=== PATIENT | female | born 2000 | race Caucasian/White ===

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

== ENCOUNTER 2019-03-06 20:32 | Inpatient (IN) ==
[2019-03-06 21:35] LABS: AMPHETAMINE SCREEN NEGATIVE (NEG); CANNABINOID SCREEN,URINE NEGATIVE (NEG); COCAINE SCREEN NEGATIVE (NEG); METHADONE URINE SCREEN NEGATIVE (NEG); METHAMPHETAMINES SCREEN,URINE NEGATIVE (NEG); OPIATE SCREEN,URINE NEGATIVE (NEG); URINE SAMPLE TYPE VOIDED SPECIMEN; URINE SPECIFIC GRAVITY - MAN 1.005
[2019-03-06] MEDS ORDERED: Nalbuphine Inj 20 MG/ML Ampule IVP PRN (22:05)
[2019-03-06] MEDS ORDERED: Lidocaine 1% 10 MG/ML - 20 ML VIAL SUBCUT PRN (22:05)
[2019-03-06] MEDS ORDERED: TERBUTALINE SULFATE 1 MG/1 ML SDV SUBCUT PRN (22:05)
[2019-03-06] MEDS ORDERED: LIDOCAINE HCL 2 % 10 ML JELLY URO-JECT TOPICAL PRN (22:05)
[2019-03-06] MEDS ORDERED: Lactated Ringers-OB Dept 2,000 ML ONE (22:05)
[2019-03-06] MEDS ORDERED: Naloxone Inj 0.01 MG in Sodium Chloride 0.9% vial 1 ML IVP PRN (22:05)
[2019-03-06] MEDS ORDERED: NALOXONE 0.4 MG/1 ML VIAL IVP PRN (22:05)
[2019-03-06] MEDS ORDERED: Phenylephrine Inj 50 MCG in Sodium Chloride 0.9% vial 0.5 ML IVP PRN (22:05)
[2019-03-06] MEDS ORDERED: fentaNYL Inj 100 MCG/2 ML VIAL IV PRN (22:05)
[2019-03-06] MEDS ORDERED: FAMOTIDINE 20 MG/2 ML VIAL IVP PRN ×2 (22:05)
[2019-03-06] MEDS ORDERED: Metoclopramide Inj 10 MG/2 ML VIAL IV PRN (22:05)
[2019-03-06] MEDS ORDERED: CefOXitin Inj 2 GM in Sodium Chloride 0.9% 100 ML IV PRN (22:05)
[2019-03-06] MEDS ORDERED: MISOPROSTOL 200 MCG TABLET RECTAL PRN (22:05)
[2019-03-06] MEDS ORDERED: ePHEDrine Inj 50 MG/ML AMP IVP PRN (22:05)
[2019-03-06] MEDS ORDERED: METHYLERGONOVINE MALEATE 0.2 MG/1 ML VIAL IM PRN (22:05)
[2019-03-06] MEDS ORDERED: ONDANSETRON 4 MG/2 ML VIAL IVP PRN (22:05)
[2019-03-06] MEDS ORDERED: diphenhydrAMINE 50 MG/1 ML VIAL IVP PRN (22:05)
[2019-03-06] MEDS ORDERED: Carboprost Inj 250 MCG/ML AMP IM PRN (22:05)
[2019-03-06] MEDS ORDERED: CITRIC ACID/SODIUM CITRATE 30 ML CUP PO PRN (22:05)
[2019-03-06] MEDS ORDERED: OXYTOCIN 10 UNIT/1 ML IM PRN (22:05)
[2019-03-06] MEDS ORDERED: LIDOCAINE W/ SODIUM BICARB 0.5 ML SYR SUBD PRN (22:05)
[2019-03-06] MEDS ORDERED: Oxytocin 20 Units + LR 20 UNIT/1,000 ML BAG IV SCH (22:15)
[2019-03-06 22:34] LABS: Hematocrit [HCT] 37.6 % (37.0-47.0); Hemoglobin [HGB] 12.9 g/dL (12.0-16.0); MEAN CORPUSCULAR HGB CONC 34.3 g/dL (33-37); MEAN PLATELET VOLUME 11.1 FL (7.4-12.2)
[2019-03-06] MEDS: Lactated Ringers-OB Dept 1,000 ML PRIMARY IV SCH (22:37)
[2019-03-06] MEDS: CALCIUM CARBONATE 500 MG (TUMS) CHEWABLE TABLET PO PRN (22:43)
[2019-03-06] MEDS ORDERED: Sodium Chloride 0.9% 250 ML ONE (22:43)
[2019-03-06] MEDS ORDERED: Vancomycin Inj 1gm vial ONE (22:43)
[2019-03-06] MEDS: BUTORPHANOL TARTRATE 2 MG/1 ML VIAL IVP PRN ×2 (22:59→23:20)
[2019-03-06] MEDS ORDERED: Lidocaine/Epi Inj 1.5% 5 ML AMPUL EPIDURAL ONE (23:21)
[2019-03-06] MEDS ORDERED: Fent/Bupiv 2mcg/0.0625% Epid 250 ML ONE (23:43)
[2019-03-06] MEDS ORDERED: fentaNYL 2 MCG/BUPIVACAINE 0.0625%/NS 0.9% 250 ML BAG EPIDURAL SCH (23:45)
--- NOTE | 2019-03-06 23:53 | CRNA.PROCE ---
Central Neuraxis Block [facility] - - Safety Measures: Time Out Taken, Site Verified - - Type of Block: Epidural Reason for Block: Analgesia Moniters Used During Block: SPO2, NIBP Positioning: Sitting Skin Prep Used: Betadine Skin Infiltration - Enter Amount Used in Comment Field: 1% Xylocaine (mL): Yes (wheal) Introducer User: 18 Gauge Manny Local Anesthetic - Enter Amount Used in Comment Field: 1.5 % Xylocaine with Epinephrine 1:200,000 (mL): Yes (5ml) Number of Centimeters Catheter Threaded: 4 Bioclusive Dressing Applied: Yes Anesthesia Time - Other Weight: 65.487 kg Height: 4 ft 10.5 in Body Mass Index (BMI): 29.6
--- NOTE | 2019-03-06 23:54 | CRNA.PROGR ---
Anesthesia Time - Procedure/Recovery Time Start Date: 03/06/19 End Date: 03/06/19 Anesthesia : Time In: 23:20 Anesthesia : Time Out: 23:55 Anesthesia : Total Time: 35 - Total Anesthesia Time Total Anesthesia Time (minutes): 35 - Other Weight: 65.487 kg Height: 4 ft 10.5 in Body Mass Index (BMI): 29.6 Physical Status: P2 Obstetrics: Planned vaginal delivery w/ neuraxial labor anesthesia/analog
[2019-03-07] MEDS: CALCIUM CARBONATE 500 MG (TUMS) CHEWABLE TABLET PO PRN (00:53)
--- NOTE | 2019-03-07 07:14 | OB.PROGRES ---
Interval History: The patient is a 18-year-old at 37-6/7 weeks who presented last evening with contractions and pelvic pressure and feeling as though she had to push. Then spontaneous rupture of membranes with clear fluid and positive amnio sure. Positive movement. The patient was admitted and secondary to contraction pain, the patient requested an epidural. The patient's cervix changed from 3 cm to 4 cm to 5 cm. Epidural was placed and the patient had good pain relief with the epidural. This morning, the patient was examined by the nurse and membranes were palpated. Therefore, the rupture of membranes last evening was a forebag is likely. The patient's is complicated by positive group B strep. Patient is allergic to penicillins. The patient did receive vancomycin since the GBS was resistant to clindamycin per the nurse report last evening. The patient experienced flushing and some itching of her neck. Benadryl was given with excellent relief. Past medical history asthma. No hypertension or diabetes The patient has had surgery for a cyst on her back The patient is allergic to penicillin Positive tobacco. No alcohol in . History of drug use but none in according to the patient just now. Objective - Cervical Exam Cervical Exam: /-2 cephalic presentation. AROM with clear fluid. Copious amounts of clear fluid. [place]: Contractions every 2-3 minutes Heart Rate Interpretation Category: Category I - Labs CBC and BMP: 03/06/19 22:30 - Vital Signs Last Taken Vital Signs: Vital Signs - Last Taken Temperature 98.5 F 03/07/19 01:30 Pulse Rate 83 03/07/19 06:54 Respiratory Rate 18 03/07/19 06:34 Blood Pressure 121/80 03/07/19 06:34 Pulse Ox 97 03/07/19 06:36 Assessment and Plan - Assessment / Plan Additional Assessment/Plan Details: Assessment: IUP 37-6/7 weeks with presentation last evening with latent to active labor. Positive group B strep Mild gestational thrombocytopenia with platelets 137,000. H&H good. Patient did have 3 blood pressures in the mild range. Other blood pressures have been 120s over 70s are 120s over 80s. The patient denies headache. AROM with clear fluid Plan: Continue close observation I will check a CMP as well as a CBC again right now to look at the patient's liver function tests and renal function tests, H&H and platelets. I will continue to follow patient's blood pressures. The patient's blood pressures recently have been normal range. If the patient does have gestational hypertension, the patient's blood pressures for the most part are normal. Patient did have 1+ proteinuria on 02/26/2019. The patient does have preeclampsia it would be preeclampsia without signs or symptoms of severe preeclampsia. Expectant management. I did inform Dr. Ochoa that this patient is here after [address] Ochoa has followed this patient during her .
[2019-03-07 08:08] LABS: Hematocrit [HCT] 35.3 % (37.0-47.0); Hemoglobin [HGB] 11.9 g/dL (12.0-16.0); MEAN CORPUSCULAR HGB CONC 33.7 g/dL (33-37); MEAN CORPUSCULAR VOLUME 95.4 FL (81-99); MEAN PLATELET VOLUME 11.1 FL (7.4-12.2); RED BLOOD COUNT 3.7 10^6/uL (4.20-5.40)
[2019-03-07 08:23] LABS: BLOOD UREA NITROGEN 4 mg/dL (7-22); SERUM ALBUMIN 2.9 g/dL (3.5-4.8); Uric Acid 5.7 mg/dl (2.5-6.2)
--- NOTE | 2019-03-07 09:07 | OB.PROGRES ---
Date of Service: 03/07/19 Time of Service: 09:01 Interval History: Denies pain with her epidural, but is ready to be done so she can get up and walk. Boyfriend says that she wants a cigarette. Objective - Cervical Exam Cervical Exam: 6-7/100/-1 per RN at 0830 [place]: every 3-4 minutes, palpating moderate. Heart Rate: q5 minutes apart. Heart Rate Interpretation Category: Category I - Labs CBC and BMP: 03/07/19 07:50 03/07/19 07:50 - Vital Signs Last Taken Vital Signs: Vital Signs - Last Taken Temperature 98.4 F 03/07/19 08:15 Pulse Rate 88 03/07/19 08:15 Respiratory Rate 18 03/07/19 08:15 Blood Pressure 128/80 03/07/19 08:15 Pulse Ox 95 03/07/19 08:15 Assessment and Plan - Patient Problems (1) Active labor Current Visit: Yes Status: Acute - Assessment / Plan Additional Assessment/Plan Details: -GBS +: has received 1 dose of vancomycin at 2300 last night. -comfortable with her epidural. -will augment with pitocin if needed. -expectant management.
[2019-03-07] MEDS ORDERED: Oxytocin 20 Units + LR 20 UNIT/1,000 ML BAG IV SCH ×2 (09:30→13:32)
[2019-03-07] MEDS ORDERED: BUPivacaine Inj 0.25% PF - 10ml vial ONE (10:13)
[2019-03-07] MEDS ORDERED: LIDOCAINE MPF 2% - 5 ML (20 MG/1 ML) ONE (10:13)
[2019-03-07] MEDS: Lactated Ringers-OB Dept 1,000 ML PRIMARY IV SCH (10:18)
--- NOTE | 2019-03-07 10:18 | CRNA.PROGR ---
Anesthesia Note - Progress Notes Anesthesia Progress Note: Called to evaluate the epidural. Pt dilated to 8cm, bolused with 5cc of 2% [place] plain and 3cc of .25%bupivicaine plain, adjusted pump to a basal of 12 from 10cc. KADEN Maldonado
[2019-03-07] MEDS ORDERED: ACETAMINOPHEN 325 MG TABLET PO PRN (13:32)
[2019-03-07] MEDS ORDERED: ONDANSETRON 4 MG/2 ML VIAL IVP PRN (13:32)
[2019-03-07] MEDS ORDERED: Nalbuphine Inj 20 MG/ML Ampule IVP PRN (13:32)
[2019-03-07] MEDS ORDERED: DIPH,PERTUSS,TET(ADACEL) VAC/PF 0.5 ML (Tdap) IM ONE (13:32)
[2019-03-07] MEDS ORDERED: HYDROcodone-APAP 5 MG -325 MG TABLET PO PRN (13:32)
[2019-03-07] MEDS ORDERED: LIDOCAINE HCL 2 % 10 ML JELLY URO-JECT TOPICAL PRN (13:32)
[2019-03-07] MEDS ORDERED: GLYCERIN/WITCH HAZEL 1 BOX TOPICAL PRN (13:32)
[2019-03-07] MEDS ORDERED: CALCIUM CARBONATE 500 MG (TUMS) CHEWABLE TABLET PO PRN (13:32)
[2019-03-07] MEDS ORDERED: diphenhydrAMINE 25 MG CAPSULE PO PRN (13:32)
[2019-03-07] MEDS ORDERED: BENZOCAINE/MENTHOL SPRAY 56 GM BOTTLE TOPICAL PRN (13:32)
[2019-03-07] MEDS ORDERED: LANOLIN HPA 40 GM TUBE TOPICAL PRN (13:32)
[2019-03-07] MEDS ORDERED: Lidocaine 1% 10 MG/ML - 20 ML VIAL INTRADERM PRN (13:32)
[2019-03-07] MEDS ORDERED: diphenhydrAMINE 50 MG/1 ML VIAL IVP PRN (13:32)
[2019-03-07] MEDS ORDERED: Ondansetron ODT Tab 4 MG TAB PO PRN (13:32)
[2019-03-07] MEDS: IBUPROFEN 800 MG TABLET PO PRN ×2 (14:32→21:26)
--- NOTE | 2019-03-07 15:52 | OB.DEL.SUM ---
Delivery Note Delivery Summary: Pt is a 18 yo G3 now P2 at 37 6/7 weeks gestation by early u/s who presented last noc in labor. She had a positive amnisure as well shortly after she arrived on the L&D unit. Her GBS status is positive, needing vancomycin during labor because of PCN allergy and clindamycin resistance. She had an epidural placed for analgesia and was 5/70/-1 for most of the night. She had amniotomy this morning again for another bag of amniotic fluid, all of which was clear. She progressed somewhat slowly through active labor and was finally c/c/+2 at 1210. She began pushing a short time later and delivered a viable male over an intact perineum at 1219. No nuchal cords were noted. Baby's nose and mouth were suctioned with the bulb suction and then placed on mom's chest. Cord clamping was delayed 60 seconds. The cord was then doubly clamped by myself and cut by mom's significant other. Cord blood and cord gases were obtained and sent for analysis. The placenta delivered spontaneously and intact with a 3 vessel cord at 1230. The vagina and perineum were examined and no lacerations were noted. EBL 200 cc. Apgars were 9 at 1 minute and 10 at 5 minutes. Baby weighed 5#12.3 oz and was 17.75 inches long. Both mom and baby tolerated delivery well and are in stable condition at the current time. - Patient Problems (1) Active labor Current Visit: Yes Status: Acute
--- NOTE | 2019-03-07 17:48 | CRNA.PROGR ---
Anesthesia Note - Progress Notes Anesthesia Progress Note: catheter removed, tip intact, patient ambulating without difficulty. NAARC f/u at patient/surgeon request prn
[2019-03-07 21:40] VITALS: RESP 16
[2019-03-08] MEDS: IBUPROFEN 800 MG TABLET PO PRN ×2 (05:50→14:25)
[2019-03-08 07:39] LABS: Hematocrit [HCT] 31.7 % (37.0-47.0); Hemoglobin [HGB] 10.7 g/dL (12.0-16.0); MEAN CORPUSCULAR HGB CONC 33.8 g/dL (33-37); MEAN CORPUSCULAR VOLUME 95.2 FL (81-99); MEAN PLATELET VOLUME 10.9 FL (7.4-12.2); RED BLOOD COUNT 3.33 10^6/uL (4.20-5.40)
[2019-03-08] MEDS ORDERED: DOCUSATE 100 MG CAPSULE PO SCH (09:00)
[2019-03-08] MEDS ORDERED: Prenatal Multivitamin Tab 1 TAB TAB PO SCH (09:00)
[2019-03-08 10:37] VITALS: BP 133/94; O2SAT 98
[2019-03-08 14:26] VITALS: TEMP 98
--- NOTE | 2019-03-17 16:35 | OB.PROGRES ---
Subjective Post Day: 1 Pain Management: PO Yap Catheter: No Flatus: Yes Lochia Color: [place]/Red Small 10-25 ml Diet: Regular Feeding Method: Exculsively Ambulating: Yes Objective - General General Appearance: POSITIVE: No Acute Distress, Cooperative - Cardiovacular Cardiovascular Exam: POSITIVE: RRR, No Murmur Edema: +1 Pedal Edema Extremities: Negative Mohit's - Bilaterally - Respiratory Respiratory Exam: POSITIVE: Clear to Auscultation - Bilaterally, Breathing Non Labored - Abdomen Bowel Sounds: Present - Fundus/Lochia/Perineum Uterus Consistency: Firm Assesstment / Plan (1) Active labor Status: Resolved (2) (normal spontaneous vaginal delivery) Status: Acute (3) Positive GBS test Status: Acute Assessment / Plan: -routine cares. -rubella immune. -breast feeding coming along. -rh positive. -d/c home today per pt request. DISCHARGE NOTE: Admitting diagnosis: Labor at 37 6/7 weeks, GBS positive, resistant to clindamycin Discharge diagnosis: same, delivered. Outcome: Diet: regular. F/u: 6 week pp visit. Disposition: home.
== END 2019-03-08 17:50 | disposition home or self-care (01) | DRG 807 ==
LOC: OBOP 20:32 → OBIP 22:15
PROVIDERS: ADMIT Obstetrics & Gynecology; ATTEND Family Medicine